=== PATIENT | female | born 1990 | race African-American/Black ===

== ENCOUNTER 2016-11-29 10:12 | Emergency (ER) | payer MEDICAID ==
[2016-11-29 10:30] VITALS: BP 160/93
--- NOTE | 2016-11-29 10:33 | ER Document Report ---
ED Medical Screen (RME) - General Stated Complaint: FELL/ANKLE PAIN Notes: 26 yo female c/o left ankle pain. walking, twisted ankle and fell . pain and swelling to left lateral malleolus. Physical Exam - Vital signs Vitals: Temp Pulse Resp BP Pulse Ox 98.0 F 83 16 160/93 H 97 11/29/16 10:27 11/29/16 10:27 11/29/16 10:27 11/29/16 10:27 11/29/16 10:27 Course - Vital Signs Vital signs: Temp Pulse Resp BP Pulse Ox 98.0 F 83 16 160/93 H 97 11/29/16 10:27 11/29/16 10:27 11/29/16 10:27 11/29/16 10:27 11/29/16 10:27
--- NOTE | 2016-11-29 11:43 | ER Document Report ---
ED General - General Chief Complaint: Ankle Pain Stated Complaint: FELL/ANKLE PAIN Mode of Arrival: Wheelchair Information source: Patient Notes: Patient is a 26 yo female who presents with left ankle pain and swelling that occurred this morning after she tripped over her own feet. She states she had injured this same ankle 1 week ago but did not see a doctor because she was ambulatory without pain or swelling. Endorses associated swelling that has worsened since onset, pain is worse with weight-bearing and ambulation. She has not taken anything for pain. Denies bruising or deformity. Denies head injury or LOC. TRAVEL OUTSIDE OF THE [place] IN LAST 30 DAYS: No - Related Data Allergies/Adverse Reactions: No Known Allergies Allergy (Unverified 11/29/16 10:32) Past Medical History - Social History Smoking Status: Current Every Day Smoker Chew tobacco use (# tins/day): No Frequency of alcohol use: None Drug Abuse: None Family History: Reviewed & Not Pertinent Patient has suicidal ideation: No Patient has homicidal ideation: No Renal/ Medical History: Denies: Hx Peritoneal Dialysis Past Surgical History: Reports: Hx Section - Immunizations Hx Diphtheria, Pertussis, Tetanus Vaccination: Yes Review of Systems - Review of Systems Constitutional: See HPI EENT: No symptoms reported Cardiovascular: No symptoms reported Respiratory: No symptoms reported Gastrointestinal: No symptoms reported Genitourinary: No symptoms reported Female Genitourinary: No symptoms reported Musculoskeletal: See HPI Skin: No symptoms reported Hematologic/Lymphatic: No symptoms reported Neurological/Psychological: No symptoms reported Physical Exam - Vital signs Vitals: Temp Pulse Resp BP Pulse Ox 98.0 F 83 16 160/93 H 97 11/29/16 10:27 11/29/16 10:27 11/29/16 10:27 11/29/16 10:27 11/29/16 10:27 Interpretation: Hypertensive - most likely secondary to pain - Notes Notes: PHYSICAL EXAM: CONSTITUTIONAL: Alert and oriented, well-appearing and in no acute distress. HENT: Normocephalic, atraumatic. Moist mucous membranes. HEART: Regular rate and rhythm without murmurs. LUNGS: CTAB and equal. No wheezes, rales or rhonchi. EXTREMITIES: Left ankle - tender to palpation around lateral malleolus with associated effusion to same. No deformities or ecchymosis. ROM limited in flexion/extension secondary to pain. No pitting edema. No cyanosis. Cap Refill < 3 seconds. Distal pulses intact. NEURO: Cranial nerves grossly intact. Normal sensory/motor exams. SKIN: Warm and dry. Normal turgor. No rashes or lesions noted. Course - Re-evaluation Re-evalutation: 11/29/16 11:41 Patient seen and examined. Exam of left ankle positive for small effusion and pain around lateral malleolus. Pending xray. Will given dose of pain medication. 11/29/16 11:44 Reviewed xray - small acute avulsion fracture off distal tip of lateral malleolus and posterior aspect of distal tibia at tibiotalar joint. Joint effusion to lateral joint area also. Reviewed results with patient. Will place in ankle stirrup splint, give crutches and script for pain medication. Instructed patient to follow-up with ortho. Discharged home in stable condition. Return precautions provided. Patient gave verbal agreement with management and plan. - Vital Signs Vital signs: Temp Pulse Resp BP Pulse Ox 98.0 F 83 16 160/93 H 97 11/29/16 10:27 11/29/16 10:27 11/29/16 10:27 11/29/16 10:27 11/29/16 10:27 - Diagnostic Test Radiology reviewed: Image reviewed, Reports reviewed Procedures - Immobilization Left Lateral Ankle Pre-Proc Neuro Vasc Exam: Normal Immobilizer type: Ankle stirrup Performed by: PCT Post-Proc Neuro Vasc Exam: Normal Alignment checked and good: Yes Discharge - Discharge Clinical Impression: Closed avulsion fracture of lateral malleolus Qualifiers: Encounter type: initial encounter Laterality: left Qualified Code(s): S82.62XA - Displaced fracture of lateral malleolus of left fibula, initial encounter for closed fracture Fracture of tibia Qualifiers: Encounter type: initial encounter Tibia location: distal Fracture type: closed Fracture morphology: other fracture Laterality: left Qualified Code(s): S82.392A - Other fracture of lower end of left tibia, initial encounter for closed fracture Condition: Stable Disposition: HOME, SELF-CARE Additional Instructions: Splint Pending Casting Your injury can't be casted until the swelling has subsided. Therefore, a temporary splint has been placed to protect the injury. Full use of an injured area is not possible in a splint. You should follow the doctor's instructions concerning rest, ice, and elevation of the injury. Never do anything which causes pain under the splint. Keep the splint on ALL THE TIME until you return for casting. If there is unexpected severe pain, or numbness, discoloration, or swelling beyond the splint, you should return at once. Sprained Ankle Your sprained ankle results from stretching or tearing of the ligaments which support the ankle. This usually results from twisting the foot inward and under. The ligaments will require time and protection in order to heal properly. Many ankle sprains are quite disabling, and should be taken seriously. The usual treatment for an ankle sprain is cold packs; protection with tape , splints, or wraps; elevation; and staying off the ankle for at least a day. As the ankle improves, you can walk IF it's not painful to bear weight. Sports are best postponed until healing is complete. More serious sprains usually require strengthening exercises after early healing. Your physician has assessed the seriousness of the ligament injury to your ankle. However, the treatment may change, depending on how your ankle progresses. If further exams were recommended, it is important that you follow through. Call the doctor if your foot becomes numb, painful, or severely swollen. Fracture of Distal Fibula You have a fracture at the end of the fibula, the smaller bone in the lower leg. The fracture is across the bony bump on the outer side of the ankle. This fracture will usually heal well, but must be protected from the pull of ligaments and tendons at the ankle. If this fracture rotates out of position (or is felt likely to rotate), it must be operated on. Initially, the extremity should be kept elevated, with ice packs applied frequently. This fracture is usually treated with a cast or walking boot. If a walking boot has been selected, it's critical that it NOT be removed without the doctor's approval, not even for sleeping or baths. Healing of this fracture takes about four to eight weeks. Younger patients heal more quickly. An X-ray is usually required during healing to check for complications and to assess healing. Call the doctor or return at once if there is severe swelling, increasing pain, or numbness in the foot. Use of Crutches The doctor has recommended that you not bear weight at this time. You will need to use crutches. Adjust the crutches so the tops come to about two inches under the armpit while you are standing upright. Use your hands -- not your armpits -- to support your weight. To get into a chair, support yourself with one crutch on the injured side. Hold the chair with the other hand, then lower yourself while putting all your weight on the good leg. Going up stairs is `good leg up, step up, then bring up crutches and bad leg.' Down stairs is `bad leg and crutches down, then bring good leg down.' If you develop numbness or swelling in an arm or hand, you are using the crutches incorrectly. Return if you are having any problems with the crutches. Oral Narcotic Medication You have been given a prescription for pain control. This medication is a narcotic. It's best taken with food, as nausea can result if taken on an empty stomach. Don't operate machinery or drive within six hours of taking this medication. Do not combine this medicine with alcohol, or with any medication which can cause sedation (such as cold tablets or sleeping pills) unless you get permission from the physician. Narcotics tend to cause constipation. If possible, drink plenty of fluids and eat a diet high in fiber and fruits. Follow-Up Care You should call the orthopedics office (contact information provided for you ) to schedule close follow-up appointment. You should return if there is unexpected worsening or a significant change in your symptoms. Prescriptions: Hydrocodone/Acetaminophen [[place] 5-325 mg Tablet] 1 tab PO Q6H PRN #10 tablet PRN Reason: Forms: Elevated Blood Pressure, Return to Work Referrals: MISTI MCCOY MD [ACTIVE STAFF] - Follow up in 1 week (call today for follow-up appointment)
[2016-11-29] MEDS ORDERED: TRAMADOL HCL 50 MG TABLET PO ONE (12:16)
== END 2016-11-29 12:58 | disposition home or self-care (01) ==
LOC: ER 10:12
DX: S82.62XA Displaced fracture of lateral malleolus of left fibula, initial encounter for closed fracture (principal); M25.572 Pain in left ankle and joints of left foot; F17.200 Nicotine dependence, unspecified, uncomplicated; W01.0XXA Fall on same level from slipping, tripping and stumbling without subsequent striking against object, initial encounter
CPT/HCPCS: 99283; 73610; L4350